=== PATIENT | male | born 1930 | race Caucasian/White ===

== ENCOUNTER 2016-06-25 09:57 | Emergency (ER) | payer MEDICARE, BC ==
[~2016-06-25] VITALS: Ht 180.3 cm; Wt 93.0 kg
[~2016-06-25 09:57] MED LIST: ATEN1TAB73; BUFF325T PO; LIPI80TA16 PO; TYLE3 PO
[2016-06-25 10:00] VITALS: BP_SYST 156; BP_SYST 238; BP_DIAS 118; BP_DIAS 97; PULSE 80; RESP 18; TEMP 97.4; O2SAT 95
[2016-06-25] MEDS ORDERED: ATOR20TA15 PO (10:09)
[2016-06-25] MEDS ORDERED: ISOS30TA3 PO (10:09)
[2016-06-25] MEDS ORDERED: VALS1TAB65 PO (10:09)
[2016-06-25] MEDS ORDERED: ASPI325T PO (10:09)
[2016-06-25] MEDS ORDERED: LEVO.05 PO (10:09)
[2016-06-25] MEDS ORDERED: CYAN1TAB24 PO (10:09)
[2016-06-25] MEDS ORDERED: SODIUM CHLOR 0.9% 1000 ML INJ 1,000 ML IV ONE (10:12)
[2016-06-25 10:15] VITALS: O2SAT 93
[2016-06-25] MEDS ORDERED: ONDANSETRON HCL 4 MG/2 ML VIAL IVP ONE (10:15)
[2016-06-25] MEDS ORDERED: SODIUM CHLORIDE 0.9% FLUSH 5 ML FLUSH IVF PRN (10:15)
[2016-06-25] MEDS ORDERED: MECLIZINE HCL 25 MG TAB PO ONE (10:15)
--- NOTE | 2016-06-25 10:33 | PD ---
HPI Chief Complaint: Dizziness Time Seen by Provider: 10:12 Travel History International Travel<30 days: No Contact w/Intl Traveler<30days: No Traveled to known affect area: No History of Present Illness HPI Patient is an 86-year-old female who presents to emergency room with complaints of lightheadedness and dizziness. Patient reports that he was at rehabilitation today, reports that he was going up and down stairs as part of his exercises, reports that all of a sudden, he began to feel lightheaded and dizzy, reports that he felt nauseous and began to throw up. Patient reports that he vomited a few times - reports that his gave him a nitroglycerin and patient was sent to the emergency room for evaluation. Patient reports that he has history of these episodes of lightheadedness and dizziness, reports that this has been ongoing issue for him for the past few years and reports that he has at least 5 episodes a week. Patient reports no chest pain or shortness of breath during his episodes of lightheaded dizziness, reports that she does gives him nitroglycerin every time, reports "I'm not sure why give , I just give it and it usually helps." Reports that he has been worked up for this with his primary care doctor, reports that they are just monitoring him at this time and considering medication adjustments. Patient at this time denies dizziness, reports that he does feel lightheaded. Patient reports that he did not eat breakfast this morning or drink any fluids prior to going to rehabilitation as he was in a heck and had an disposal man session today with rehab. Patient denies chest pain or shortness of breath. Patient reports that he feels a little nauseous as well. Overall, patient reports that he feels much better than when he did 45 minutes ago when his symptoms started. Patient's at the bedside reports that patient appears at his baseline. 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 knee) Family History Family History: Negative Social History Alcohol Use: No Tobacco Use: No Substance Use: No Allergies-Medications (Allergen,Severity, Reaction): Coded Allergies: No Known Allergies (Verified , 1/25/17) Reported Meds & Prescriptions Reported Meds & Active Scripts Active Reported B12 (Cyanocobalamin) 1,000 Mcg Tab 500 Mcg PO DAILY Valsartan 160 Mg Tab 160 Mg PO DAILY Synthroid (Levothyroxine Sodium) 50 Mcg Tab 50 Mcg PO DAILY Isosorbide Mononitrate ER (Isosorbide Mononitrate) 30 Mg Balta 30 Mg PO DAILY Atorvastatin (Atorvastatin Calcium) 20 Mg Tab 20 Mg PO HS Aspirin 325 Mg Tab 325 Mg PO DAILY Review of Systems General / Constitutional: No: Fever Eyes: No: Visual changes HENT: Positive: Lightheadedness, No: Headaches Cardiovascular: No: Chest Pain or Discomfort Respiratory: No: Cough, Shortness of Breath Gastrointestinal: Positive: Nausea, Vomiting, No: Diarrhea, Abdominal Pain Genitourinary: No: Dysuria Musculoskeletal: No: Pain Skin: No Rash Neurologic: No: Weakness Psychiatric: No: Depression Endocrine: No: Polydipsia Hematologic/Lymphatic: No: Easy Bruising Physical Exam Narrative GENERAL: NAD SKIN: Warm and dry. HEAD: Atraumatic. Normocephalic. EYES: Pupils equal and round. No scleral icterus. No injection or drainage. ENT: No nasal bleeding or discharge. Mucous membranes pink and moist. NECK: Trachea midline. No JVD. CARDIOVASCULAR: Regular rate and rhythm. No murmur appreciated. RESPIRATORY: No accessory muscle use. Clear to auscultation. Breath sounds equal bilaterally. GASTROINTESTINAL: Abdomen soft, non-tender, nondistended. Hepatic and splenic margins not palpable. MUSCULOSKELETAL: No obvious deformities. No clubbing. No cyanosis. No edema. NEUROLOGICAL: Awake and alert. No obvious cranial nerve deficits. Motor grossly within normal limits. Normal speech. Cranial nerves to 12 grossly intact with no obvious deficits PSYCHIATRIC: Appropriate mood and affect; insight and judgment normal. Data Data Last Documented VS Vital Signs Date Time Temp Pulse Resp B/P Pulse Ox O2 Delivery O2 Flow Rate FiO2 06/25/16 11:15 76 16 142/75 73 18 151/74 75 18 167/91 06/25/16 11:10 97 Nasal Cannula 2 06/25/16 10:00 97.4 Orders Electrocardiogram (06/25/16 10:12) Complete Blood Count With Diff (06/25/16 10:12) Comprehensive Metabolic Panel (06/25/16 10:12) B-Type Natriuretic Peptide (06/25/16 10:12) Ckmb (Isoenzyme) Profile (06/25/16 10:12) Troponin I (06/25/16 10:12) Act Partial Throm Time (Ptt) (06/25/16 10:12) Prothrombin Time / Inr (Pt) (06/25/16 10:12) Urinalysis - C+S If Indicated (06/25/16 10:12) Chest, Single Ap (06/25/16 10:12) Ct Brain W/O Iv Contrast(Rout) (06/25/16 10:12) Ecg Monitoring (06/25/16 10:12) Iv Access Insert/Monitor (06/25/16 10:12) Oximetry (06/25/16 10:12) Meclizine (Antivert) (06/25/16 10:15) Ondansetron Inj (Zofran Inj) (06/25/16 10:15) Sodium Chloride 0.9% Flush (Ns Flush) (06/25/16 10:15) Sodium Chlor 0.9% 1000 Ml Inj (Ns 1000 M (06/25/16 10:12) Orthostatic Vital Signs (06/25/16 10:12) Labs Laboratory Tests Test 06/25/16 06/25/16 10:24 11:15 White Blood Count 8.3 TH/MM3 Red Blood Count 5.47 MIL/MM3 Hemoglobin 14.9 GM/DL Hematocrit 47.0 % Mean Corpuscular Volume 85.8 FL Mean Corpuscular Hemoglobin 27.2 PG Mean Corpuscular Hemoglobin 31.7 % Concent Red Cell Distribution Width 13.1 % Platelet Count 220 TH/MM3 Mean Platelet Volume 7.5 FL Neutrophils (%) (Auto) 80.3 % Lymphocytes (%) (Auto) 11.5 % Monocytes (%) (Auto) 6.6 % Eosinophils (%) (Auto) 1.2 % Basophils (%) (Auto) 0.4 % Neutrophils # (Auto) 6.8 TH/MM3 Lymphocytes # (Auto) 0.9 TH/MM3 Monocytes # (Auto) 0.5 TH/MM3 Eosinophils # (Auto) 0.1 TH/MM3 Basophils # (Auto) 0.0 TH/MM3 CBC Comment DIFF FINAL Differential Comment Prothrombin Time 11.2 SEC Prothromb Time International 1.0 RATIO Ratio Activated Partial 23.9 SEC Thromboplast Time Sodium Level 143 MEQ/L Potassium Level 4.1 MEQ/L Chloride Level 109 MEQ/L Carbon Dioxide Level 24.1 MEQ/L Anion Gap 10 MEQ/L Blood Urea Nitrogen 19 MG/DL Creatinine 1.30 MG/DL Estimat Glomerular Filtration 52 ML/MIN Rate Random Glucose 162 MG/DL Calcium Level 8.1 MG/DL Total Bilirubin 1.4 MG/DL Aspartate Amino Transf 12 U/L (AST/SGOT) Alanine Aminotransferase 13 U/L (ALT/SGPT) Alkaline Phosphatase 84 U/L Total Creatine Kinase 83 U/L Troponin I LESS THAN 0.02 NG/ML B-Type Natriuretic Peptide 99 PG/ML Total Protein 7.1 GM/DL Albumin 3.4 GM/DL Urine Color YELLOW Urine Turbidity CLEAR Urine pH 6.0 Urine Specific [place] 1.023 Urine Protein 30 mg/dL Urine Glucose (UA) NEG mg/dL Urine Ketones NEG mg/dL Urine Occult Blood NEG Urine Nitrite NEG Urine Bilirubin NEG Urine Leukocyte Esterase NEG Urine RBC 0-3 /hpf Urine WBC 0-2 /hpf Urine Squamous Epithelial 0-5 /hpf Cells Urine Hyaline Casts 0-2 /lpf Urine Mucus OCC /lpf Microscopic Urinalysis Comment CULT NOT INDICATED MDM Medical Decision Making Medical Screen Exam Complete: Yes Emergency Medical Condition: Yes Interpretation(s) ekg at 10:16, NSR at 72bpm, qt/qtc: 456/477 Vital Signs Date Time Temp Pulse Resp B/P Pulse Ox O2 Delivery O2 Flow Rate FiO2 06/25/16 10:15 93 Room Air 06/25/16 10:00 97.4 80 18 156/97 95 CBC & BMP Diagram 06/25/16 10:[address] 06/25/16 1012 Signed Impressions: Service Date/Time: Saturday, June 25, 2016 10:35 - CONCLUSION: 1. No acute intracranial abnormality identified. Tyae Barbosa MD Chest X-Ray 06/25/16 1012 Signed Impressions: Service Date/Time: Saturday, June 25, 2016 10:25 - CONCLUSION: No acute disease. Jaison Ortega MD Differential Diagnosis ACS, electrolyte abnormality, arrhythmia, vertigo, CVA Narrative Course Patient is an 86-year-old male who presents to emergency room with complaints of dizziness and lightheadedness during history his rehab session today. Patient reports that he frequently has these symptoms about 5 times a weak for the past few years. Patient's reports that she usually gives him a nitroglycerin even know she does not have any chest pain at the time of the event and has complete resolution of symptoms after nitro. Patient at this time with only c/o of lightheadedness. Patient reports that he did not have anything to drink or eat breakfast this morning because he was in a heck. Patient with normal neurological exam at this time, plan to hydrate patient with IV fluids. Orthostatic vital signs ordered for patient. CT of the head ordered as patient's blood pressure was elevated upon arrival to emergency room, systolic blood pressure was in the 230s initially and repeat BP now 156/97. EKG ordered as well as labs to check for infection/dehydration. Patient reevaluated, patient reports that he is feeling much better. Patient reports resolution of symptoms. Reviewed all labs and all studies with patient and his . They reports that he has had similar symptoms which has been recurrent for the past few years. Patient requesting to be discharged home at this time, he will follow up with his primary care doctor and return to ER as needed. Diagnosis Primary Impression: Lightheadedness Additional Impressions: Nausea & vomiting Qualified Code: R11.2 - Non-intractable vomiting with nausea, unspecified vomiting type Dizziness Renal insufficiency Dehydration Patient Instructions: General Instructions Additional Instructions: Please follow-up with your primary care doctor Return to ER as needed Return to ER if you develop return or progression of symptoms Disposition: 01 DISCHARGE HOME Condition: Stable Sophie Colon DO Jun 25, 2016 10:33
--- NOTE | 2016-06-25 10:35 | RADHPO ---
EXAM DATE/TIME: 06/25/2016 10:25 [facility] COMPARISON: No previous studies available for comparison. INDICATIONS : Syncope, nausea. MEDICAL HISTORY : Cardiovascular disease. SURGICAL HISTORY : CABG. ENCOUNTER: Initial ACUITY: 1 day PAIN SCORE: 0/10 LOCATION: Bilateral chest FINDINGS: A single view of the chest demonstrates the lungs to be symmetrically aerated without evidence of mas s, infiltrate or effusion. The cardiomediastinal contours are unremarkable. Osseous structures are intact. There is a prior median sternotomy CABG. CONCLUSION: No acute disease. Jaison Ortega MD on June 25, 2016 at 10:33 Board Certified Radiologist. This report was verified electronically.
[2016-06-25 10:36] LABS: AUTOMATED NEUTROPHIL # 6.8 TH/MM3 (1.8-7.7); BASOPHIL % 0.4 % (0.0-2.0); EOSINOPHIL # 0.1 TH/MM3 (0-0.4); EOSINOPHIL % 1.2 % (0.0-4.0); HEMO FLAGS DIFF FINAL; LYMPH % 11.5 % (9.0-44.0); LYMPHOCYTE # 0.9 TH/MM3 (1.0-4.8); MEAN CELL VOLUME 85.8 FL (80.0-100.0); MEAN CORPUSCULAR HEMOGLOBIN 27.2 PG (27.0-34.0); MEAN CORPUSCULAR HGB CONC 31.7 % (32.0-36.0); MONO % 6.6 % (0.0-8.0); NEUT % 80.3 % (16.0-70.0); PLATELET COUNT 220 TH/MM3 (150-450); RED BLOOD COUNT 5.47 MIL/MM3 (4.50-5.90); RED CELL DISTRIBUTION WIDTH 13.1 % (11.6-17.2); WHITE BLOOD COUNT 8.3 TH/MM3 (4.0-11.0)
[2016-06-25 10:44] LABS: CHLORIDE 109 MEQ/L (98-107); POTASSIUM 4.1 MEQ/L (3.5-5.1); SODIUM (NA) 143 MEQ/L (136-145)
[2016-06-25 10:48] LABS: ANION GAP 10 MEQ/L (5-15); APTT (PATIENT) 23.9 SEC (24.3-30.1); BICARBONATE 24.1 MEQ/L (21.0-32.0); BLOOD UREA NITROGEN 19 MG/DL (7-18); PROTHROMBIN TIME - PATIENT 11.2 SEC (9.8-11.6)
[2016-06-25 10:51] LABS: ALT (GPT) 13 U/L (12-78); AST (GOT) 12 U/L (15-37)
[2016-06-25 10:52] LABS: GLOMERULAR FILTRATION RATE 52 ML/MIN (>89)
[2016-06-25 10:53] LABS: TOTAL BILIRUBIN ADULT 1.4 MG/DL (0.2-1.0)
[2016-06-25 10:54] LABS: ALKALINE PHOSPHATASE 84 U/L (45-117)
[2016-06-25 10:58] LABS: CREATINE KINASE 83 U/L (39-308)
[2016-06-25 11:10] VITALS: O2SAT 97
[2016-06-25 11:15] VITALS: BP_SYST 142; BP_SYST 151; BP_SYST 167; BP_DIAS 74; BP_DIAS 75; BP_DIAS 91; RESP 16; RESP 18
[2016-06-25 11:29] LABS: BLOOD, URINE NEG (NEG); GLUCOSE,URINE NEG (NEG); KETONE, URINE NEG (NEG); NITRITE,URINE NEG (NEG)
--- NOTE | 2016-06-25 11:37 | RADHPO ---
EXAM DATE/TIME: 06/25/2016 10:35 [facility] COMPARISON: No previous studies available for comparison. INDICATIONS : Dizziness with nausea and vomiting. RADIATION DOSE: 58.75 CTDIvol (mGy) MEDICAL HISTORY : Hypothyroidism. Hypercholesterolemia. Cardiovascular disease Hypertension. SURGICAL HISTORY : CABG Orthopedic surgery. ENCOUNTER: Initial ACUITY: 1 day PAIN SCALE: 0/10 LOCATION: cranial TECHNIQUE: Multiple contiguous axial images were obtained of the head. Using automated exposure control and adj ustment of the mA and/or kV according to patient size, radiation dose was kept as low as reasonably a chievable to obtain optimal diagnostic quality images. FINDINGS: CEREBRUM: The ventricles are normal for age. No evidence of midline shift, mass lesion, hemorrhage or acute in farction. No extra-axial fluid collections are seen. POSTERIOR FOSSA: The cerebellum and brainstem are intact. The 4th ventricle is midline. The cerebellopontine angle i s unremarkable. EXTRACRANIAL: The visualized portion of the orbits is intact. SKULL: The calvaria is intact. No evidence of skull fracture. CONCLUSION: 1. No acute intracranial abnormality identified. Taye Barbosa MD on June 25, 2016 at 11:34 Board Certified Radiologist. This report was verified electronically.
[2016-06-25 11:44] LABS: HYALINE CAST, URINE 0-2 /lpf (RARE); MUCUS URINE OCC /lpf (OCC); URINE COLOR YELLOW (YELLW/STRAW)
[2016-06-25 11:45] LABS: COMMENT (UR) CULT NOT INDICATED; CULTURE IF INDICATED CULT NOT INDICATED; RBC, URINE 0-3 /hpf (0-3); SQUAMOUS EPITHELIAL CELL URINE 0-5 /hpf (0-5); WBC, URINE 0-2 /hpf (0-5)
[2016-06-25 12:10] VITALS: BP 134/79
--- NOTE | 2016-06-26 18:09 | EKG ---
Date Performed: 06/25/2016 Time Performed: 10:16:30 PTAGE: 86 years EKG: Possible ectopic atrial rhythm with PAC(s) Prolonged QT interval Left axis deviation rSr'(V 1) - probable normal variant Possible inferior infarct - age undetermined Lateral ST-T changes may be due to myocardial ischemia When compared to previous tracing, lateral ST changes are Notably more pr ominant, consider ischemia. Abnormal ECG PREVIOUS TRACING : 01/16/2005 16.17 DOCTOR: Ludwin Diamond Interpretating Date/Time 06/26/2016 18:07:20
== END 2016-06-25 12:13 | disposition home or self-care (01) ==
LOC: PHED 09:57
DX: R42 Dizziness and giddiness (principal); I12.9 Hypertensive chronic kidney disease with stage 1 through stage 4 chronic kidney disease, or unspecified chronic kidney disease; N18.9 Chronic kidney disease, unspecified; E03.9 Hypothyroidism, unspecified; E78.00 Pure hypercholesterolemia, unspecified; I25.10 Atherosclerotic heart disease of native coronary artery without angina pectoris; Z95.1 Presence of aortocoronary bypass graft; Z96.652 Presence of left artificial knee joint
CPT/HCPCS: 70450; 71010; 80053; 81001; 82550; 83880; 84484; 85025; 85610; 85730; 93005; 96361; 96374; 99285; J2405; J7030